=== PATIENT | female | born 1980 | race Caucasian/White ===

== ENCOUNTER 2019-05-05 23:32 | Emergency (ER) | payer MEDICAID ==
[~2019-05-05] VITALS: Ht 162.6 cm; Wt 73.0 kg
[2019-05-06] MEDS ORDERED: IBUPROFEN 600MG TABLET PO ONE (02:45)
[2019-05-06 04:59] VITALS: BP 136/95
== END 2019-05-06 05:07 | disposition home or self-care (01) ==
LOC: ER 23:32
DX: S09.8XXA Other specified injuries of head, initial encounter (principal); R51 Headache; Z90.49 Acquired absence of other specified parts of digestive tract; Z98.890 Other specified postprocedural states; X58.XXXA Exposure to other specified factors, initial encounter; Y93.89 Activity, other specified; Y92.89 Other specified places as the place of occurrence of the external cause; Y99.8 Other external cause status
CPT/HCPCS: 72040; 72070; 72100; 99284